=== PATIENT | female | born 1965 | race Caucasian/White ===

== ENCOUNTER 2019-08-14 07:16 | Day surgery (SDC) | payer BC ==
[~2019-08-14] VITALS: Ht 154.9 cm; Wt 98.9 kg
[2019-08-14] VITALS (11 sets, daily range): BP systolic 115–166; BP diastolic 66–97; PULSE 69–94; RESP 16–30; Ht 154.9 cm; Wt 98.9 kg
[~2019-08-14 07:16] MED LIST: BENA20TA4 PO
[2019-08-14] MEDS ORDERED: LACTATED RINGER'S 1,000 ML IV SCH (08:30)
[2019-08-14] MEDS ORDERED: DESFLURANE 15 MIN ONE (09:57)
[2019-08-14] MEDS ORDERED: FENTAnyl 50 MCG/ML VIAL ONE (09:57)
[2019-08-14] MEDS ORDERED: SUCCINYLCHOLINE CHLORIDE 100 MG/5 ML SYG IV ONE (09:57)
[2019-08-14] MEDS ORDERED: PROPOFOL 20 ML ONE (09:57)
[2019-08-14] MEDS ORDERED: ONDANSETRON 4 MG INJ ONE (10:11)
[2019-08-14] MEDS ORDERED: DEXAMETHASONE 4 MG/ML 5 ML INJ ONE (10:11)
[2019-08-14] MEDS ORDERED: CEFAZOLIN 1 GM INJ ONE (10:11)
[2019-08-14] MEDS ORDERED: PHENYLephrine (100 MCG/ML) 10ML SYG ONE (10:15)
[2019-08-14] MEDS ORDERED: hydrALAzine 20 MG INJ IV PRN (10:30)
[2019-08-14] MEDS ORDERED: OXYCODONE/ACETAMINOPHEN (5/325) TAB PO PRN ×2 (10:30)
[2019-08-14] MEDS ORDERED: MEPERIDINE 25 MG INJ IV PRN (10:30)
[2019-08-14] MEDS ORDERED: FENTAnyl 50 MCG/ML VIAL IV PRN ×3 (10:30)
[2019-08-14] MEDS ORDERED: ONDANSETRON 4 MG INJ IV PRN (10:30)
[2019-08-14] MEDS ORDERED: LABETALOL HCL 20MG INJ IV PRN (10:30)
[2019-08-14] MEDS ORDERED: ALBUTEROL 0.083% (NEB) 2.5 MG/3 ML AMP HHN STA (11:01)
[2019-08-14] MEDS ORDERED: ALBUTEROL 0.083% (NEB) 2.5 MG/3 ML AMP ONE (11:01)
[2019-08-14] MEDS ORDERED: MIDAZOLAM 1 MG/ML 2 ML INJ ONE (11:02)
== END 2019-08-14 12:45 | disposition home or self-care (01) ==
LOC: SDS 07:16
PROVIDERS: ATTEND Obstetrics & Gynecology
DX: N85.8 Other specified noninflammatory disorders of uterus (principal); I10 Essential (primary) hypertension; E66.01 Morbid (severe) obesity due to excess calories; Z68.41 Body mass index [BMI] 40.0-44.9, adult
CPT/HCPCS: 58120; 71045; 88305; 94664; J0690; J1100; J2250; J2370; J2405; J3010